=== PATIENT | male | born 1945 | race Caucasian/White ===

== ENCOUNTER 2021-10-04 09:39 | Outpatient (RCR) | payer MEDICARE, SELFPAY | END 2021-10-15 11:52 | disposition home or self-care (01) | LOC: HO.WCC 09:39 | PROVIDERS: PCP Internal Medicine; Visit Provider Surgery | DX: S51.812D Laceration without foreign body of left forearm, subsequent encounter (principal); S51.811D Laceration without foreign body of right forearm, subsequent encounter; G62.9 Polyneuropathy, unspecified; W19.XXXD Unspecified fall, subsequent encounter; I48.92 Unspecified atrial flutter; Z79.899 Other long term (current) drug therapy; Z87.891 Personal history of nicotine dependence | CPT/HCPCS: 99213; 99214 ==

== ENCOUNTER 2024-02-26 10:43 | Outpatient (AMB) | payer MEDICARE, SELFPAY ==
--- NOTE | 2024-02-26 10:44 | MHC.OFFVIS ---
Intake Visit Reasons: Leg swelling/ Self referral Intake Note: New patient presents for leg swelling. Patient has bilateral varicose veins. Experiences cramping, swelling. Accompanied by: Other Relationship Allergies meperidine [From Demerol] Allergy (Intermediate, Verified 02/26/24 10:47) Unknown HPI HPI Leg swelling/ Self referral: Details: Pérez is a pleasant 79-year-old male who is presenting today as a self-referral for ongoing bilateral lower extremity swelling and cramping of his lower extremities at night. He has had a history of varicose veins for several years, he states that they have not been bothering him until recently. He is on Lasix (for at least 5y) for peripheral edema prescribed by cardiology/PCP. He does elevate his legs but he has not been tolerable of compression stockings, states they are hard to get on and get off. He is able to walk distances; however, he has had some issues with dehydration in the last couple of weeks and has not been walking as much. He states the varicose veins not been painful; however, he does get cramping at night particularly in his shins, feet, and calves. He quit smoking more than 40 years ago and is a nondiabetic. Review of Systems Const Reports as per HPI and Denies weakness ENT Reports Normal hearing present and Denies dizziness Card Reports as per HPI, Denies chest pain, Denies chest pain at rest, Denies chest pain with activity, Denies dyspnea and Denies dyspnea on exertion Resp Reports as per HPI, Denies cough, Denies dyspnea and Denies dyspnea on exertion GI Reports as per HPI, Denies abdominal pain, Denies nausea and Denies vomiting Musc Denies numbness Skin/Breast Reports as per HPI, Denies erythema and Denies wounds Neuro Reports Normal hearing present, Denies dizziness, Denies numbness, Denies Sensory deficit (Neuro) and Denies weakness Psych Reports no additional complaints Endo Reports no additional complaints Physical Exam Const General: healthy appearing and no acute distress Orientation/consciousness: patient oriented x3 HEENT Head: Yes normal to inspection Ears: hearing grossly normal bilaterally Mouth: Normal oral and palatal mucosa present Resp Effort & Inspection: normal respiratory effort and able to speak in complete sentences Auscultation: clear to auscultation bilaterally Cardio Jugular venous distension: no JVD Rate: regular rate Rhythm: regular rhythm Heart sounds: S1 normal heart sound present and S2 normal heart sound present Bruits: no abdominal aortic bruits, no carotid bruits, no femoral bruits and no renal bruits Peripheral pulses: Peripheral pulses 2+ throughout GI Inspection: Yes normal to inspection Palpation (GI): No Abdominal aortic bruit present Skin Other: Bilateral lower extremities: 1+ pitting edema. Strong, palpable DP/PT pulses. Hyperkeratosis noted throughout. Hyperpigmentation noted. Small wound, scabbing over, noted on the anterior mid-galindo. Several rope-like varicosities noted, left more than right. Not painful. CEAP: C - 4 E - primary A - superficial P - reflux General skin exam: no rashes or lesions noted Wounds: no wounds Hair: normal Neuro General: patient oriented x3 Cranial nerves: Yes Normal hearing present Cognition (Neuro): normal cognition Gait exam (Neuro): Normal gait present Motor exam (neuro): 5/5 motor strength present throughout Sensory Exam: No Sensory deficit (Neuro) Extrem General: Yes normal to inspection, Yes full ROM, Yes capillary refill normal and Yes normal gait Assessment & Plan Assessment & Plan (1) Varicose veins of both lower extremities with inflammation: Code(s): I83.11 - Varicose veins of right lower extremity with inflammation; I83.12 - Varicose veins of left lower extremity with inflammation Category: Medical Plan: Pérez is presenting today as a self-referral for ongoing bilateral lower extremity swelling and cramping. He states he elevates his legs and has tried compression stockings but did not tolerate them well. He does remain active; however, he has been having difficulty due to some dehydration issues. In short, the patient has evidence of venous insufficiency. I have discussed the pathophysiology with the patient. In addition I have provided informational material regarding venous disease to the patient. We have discussed conservative measures including compression, elevation, and exercise. I have also provided a handout regarding appropriate use of compression stockings and where to purchase good compression stockings as well. I have taken the liberty of ordering venous insufficiency testing with the patient. They will follow up with me after testing. The patient had an opportunity to ask questions regarding the treatment plan. All questions were answered. No major barriers to understanding were identified. The patient expressed understanding and agreement with the above treatment plan. The patient is aware they should contact our office by phone for worsening of the current condition or the appearance of new symptoms. Thank you for allowing me to participate in the vascular care of this patient. If you have any questions or concerns regarding the treatment for the above condition please do not hesitate to contact me. The office telephone contact is [phone]. This note is constructed using voice recognition software. While every effort has been made to ensure accuracy, rn clinical coordinator errors may have been included. Thank you for allowing me to participate in the care of your patient. Yours sincerely, ANGELO Cueva Orders: Orders US venous duplex LE BI 1 Week I83.11 - Varicose veins of right lower extremity with inflammation, I83.12 - Varicose veins of left lower extremity with inflammation Coding Level of Care Code New Pt New Pt Level 4 (99565) Patient Type New Diagnoses Varicose veins of both lower extremities with inflammation I83.11; I83.12
== END 2024-02-26 11:11 | disposition home or self-care (01) ==
PROVIDERS: PCP Internal Medicine; Visit Provider Physician Assistant Surgical
DX: I83.11 Varicose veins of right lower extremity with inflammation (principal); I83.12 Varicose veins of left lower extremity with inflammation
CPT/HCPCS: 99204

== ENCOUNTER → 2024-02-26 10:43 | Outpatient (BNVA) | payer MEDICARE, SELFPAY | PROVIDERS: PCP Internal Medicine; Visit Provider Physician Assistant Surgical | DX: I83.11 Varicose veins of right lower extremity with inflammation (principal); I83.12 Varicose veins of left lower extremity with inflammation; R25.2 Cramp and spasm; Z87.891 Personal history of nicotine dependence | CPT/HCPCS: 99202 ==

== ENCOUNTER 2024-03-16 13:08 | Outpatient (REF) | payer MEDICARE, SELFPAY ==
--- NOTE | ~2024-03-16 | US_ITS ---
EXAMINATION: US LOWER EXTREMITY VENOUS (REFLUX EXAM), BILATERAL CLINICAL INDICATION: Chronic venous insufficiency with lower extremity varicose veins and inflammation COMPARISON: None. TECHNIQUE: Color flow triplex imaging and compression Doppler was performed to evaluate both the deep and the superficial systems bilaterally. To evaluate the superficial system, the examination was performed in the upright position. Color-flow Doppler ultrasound and compression ultrasound were utilized. In addition, maneuvers were utilized to demonstrate reflux. FINDINGS: 1. DEEP VENOUS ULTRASOUND OF THE RIGHT LOWER EXTREMITY: Common Femoral Vein: Compressible, normal respiratory variation and augmented flow. Femoral Vein: Compressible, normal color flow and augmentation. Popliteal Vein: Compressible, normal augmentation. Deep Reflux: Deep venous reflux in the common femoral vein and superficial femoral vein ranging from 1796 ms to 1836 ms There is no evidence of a Shah's cyst. 2. SUPERFICIAL ULTRASOUND WITH DOPPLER OF RIGHT LOWER EXTREMITY: GREAT SAPHENOUS VEIN: Saphenofemoral Junction: 0.5 cm; Reflux: 2308 ms Proximal Thigh: 0.4 cm; Reflux: 0 ms Mid Thigh: 0.1 cm; Reflux: 0 ms Above Knee: 0.1 cm; Reflux: 0 ms At Knee: 0.2 cm; Reflux: 0 ms Below Knee: 0.2 cm; Reflux: 2600 ms Mid Calf: 0.2 cm; Reflux: 2492 ms Ankle: 0.2 cm; Reflux: 0 ms DUPLICATED MEDIAL GREAT SAPHENOUS VEIN: Diameter: None imaged Reflux: NA DUPLICATED LATERAL GREAT SAPHENOUS VEIN: Diameter: 0.2 cm Reflux: None SMALL SAPHENOUS VEIN: Saphenopopliteal Junction: 0.2 cm; Reflux: 2388 ms Proximal: Wall adherent calcified thrombus which is partially compressible Mid: 0.3 cm; Reflux: 2372 ms Distal: 0.5 cm; Reflux: 2396 ms VEIN OF GIACOMINI: Size: NA Reflux: NA PERFORATORS: Location: Posterior calf into the small saphenous vein Size: 0.4 cm Reflux: None PERFORATORS: Location: Distal calf into varicosities Size: 0.3 cm Reflux: None VARICOSITIES: Location: Posterior calf off the small saphenous vein Size: 0.4 to 0.5 cm Reflux: 2272 ms to 2288 ms VARICOSITIES: Location: Medial distal calf Size: 0.2 cm Reflux: 688 ms 3. DEEP VENOUS ULTRASOUND OF THE LEFT LOWER EXTREMITY: Common Femoral Vein: Compressible, normal respiratory variation and augmented flow. Wall adherent to chronic calcification synechiae Femoral Vein: Compressible, normal color flow and augmentation. Popliteal Vein: Compressible, normal augmentation. Wall adherent chronic calcification Deep Reflux: Deep venous reflux in the superficial femoral vein and popliteal vein ranging from 1980 ms to 2176 ms There is no evidence of a Shah's cyst. 4. SUPERFICIAL ULTRASOUND WITH DOPPLER OF LEFT LOWER EXTREMITY: GREAT SAPHENOUS VEIN: Saphenofemoral Junction: 0.7 cm; Reflux: 0 ms Proximal Thigh: 0.4 cm; Reflux: 0 ms Mid Thigh: 0.2 cm; Reflux: 0 ms Above Knee: 0.3 cm; Reflux: 0 ms At Knee: 0.2 cm; Reflux: 0 ms Below Knee: 0.2 cm; Reflux: 244 ms Mid Calf: 0.3 cm; Reflux: 0 ms Ankle: 0.2 cm; Reflux: 0 ms DUPLICATED MEDIAL GREAT SAPHENOUS VEIN: Diameter: None imaged Reflux: NA DUPLICATED LATERAL GREAT SAPHENOUS VEIN: Diameter: 0.2 cm Reflux: None SMALL SAPHENOUS VEIN: Saphenopopliteal Junction: 0.2 cm; Reflux: 0 ms Proximal: 0.2 cm; Reflux: 0 ms Distal: 0.2 cm; Reflux: 0 ms VEIN OF GIACOMINI: Size: 0.2 cm Reflux: None PERFORATORS: Location: Distal calf into the small saphenous vein Size: 0.4 cm Reflux: None VARICOSITIES: Location: None significant Size: NA Reflux: NA US/US venous duplex LE BI IMPRESSION: 1. Right: Significant deep venous reflux as described above. Significant superficial venous reflux in the great saphenous vein as described above. Significant reflux in the small saphenous vein with wall adherent calcified thrombus in the proximal small saphenous vein is distended with postthrombotic changes. Multiple varicosities in the calf as described above. 2. Left: Significant deep venous reflux in the superficial femoral vein and popliteal vein. Chronic calcified wall adherent thrombus in the common femoral vein and popliteal vein consistent with chronic postthrombotic changes. No significant superficial venous reflux Electronically signed by: Danny Shell MD 04/08/2024 11:00 AM [facility] Workstation: [id number]
== END 2024-03-16 13:09 | disposition home or self-care (01) ==
LOC: HO.US 13:08
PROVIDERS: PCP Internal Medicine; Visit Provider Physician Assistant Surgical
DX: I83.11 Varicose veins of right lower extremity with inflammation (principal); I83.12 Varicose veins of left lower extremity with inflammation
CPT/HCPCS: 93970

== ENCOUNTER 2024-05-06 14:53 | Outpatient (AMB) | payer MEDICARE, SELFPAY ==
--- NOTE | 2024-05-06 14:58 | A.OFFVIS_ITS ---
Intake Visit Reasons: follow up US 03/16/24 Intake Note: Patient presents for US performed on 03/16/24. Patient has no complaints. 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 He does have significant lower extremity swelling. This was originally picked up by his vice president of software engineering and primary care. He has been on Lasix which did provide some relief. Also of note he is currently undergoing workup for AFib and may soon undergo ablation for this as well. He now presents to us for follow-up with venous insufficiency. Review of Systems Const Reports as per HPI ENT Reports no additional complaints Card Denies chest pain, Denies chest pain at rest and Denies chest pain with activity Resp Denies chest congestion and Denies cough GI Reports no additional complaints Musc Details: pain over varicosities, aching of lower extremities, swelling, cramping, heaviness and tiredness, itching Denies abnormal gait Skin/Breast Reports pruritus and Denies wounds Neuro Reports no additional complaints and Denies abnormal gait Psych Denies no additional complaints Physical Exam Const General: cooperative, healthy appearing and comfortable Orientation/consciousness: oriented to person, oriented to place and oriented to time Neck Carotids: no bruits Chest Chest palpation & inspection: normal inspection of the chest and normal palpation of entire chest wall Resp Effort & Inspection: normal respiratory effort and able to speak in complete sentences Cardio Rate: regular rate Heart sounds: S1 normal heart sound present and S2 normal heart sound present Peripheral pulses: Peripheral pulses 2+ throughout GI Inspection: Yes normal to inspection Skin Other: +2 edema, left greater than right CEAP Classification C4 - skin color changes Ep - Etiology Primary As - superficial veins P - reflux General skin exam: dry skin Neuro General: oriented to person, oriented to place and oriented to time Extrem Right lower extremity: full ROM, normal capillary refill and edema Left lower extremity: full ROM, normal capillary refill and edema Psych Mental Status: mental status grossly normal Results Reviewed Results Reviewed: Brief summary of venous insufficiency testing is as follows: right great saphenous vein: Positive right small saphenous vein: Positive right accessory vein: none present left great saphenous vein: negative left small saphenous vein: negative left accessory vein: none present Please note there is no evidence of any venous aneurysms or significant tortuosity Assessment & Plan Assessment & Plan (1) Varicose veins of both lower extremities with inflammation: Code(s): I83.11 - Varicose veins of right lower extremity with inflammation; I83.12 - Varicose veins of left lower extremity with inflammation Category: Medical Plan: In short patient has bilateral lower extremity swelling. This may be multifactorial in nature as the right leg is more significant for reflux. At the current time would like to hold off on any procedures until his cardiac issues have been resolved. We did discuss routine conservative measures including compression elevation and exercise. The patient will follow up with us in approximately 3 months time to reassess the need for right lower extremity ablation. Thank you for allowing us to assist in his care. If there are any questions or concerns please do not hesitate to contact us Coding Level of Care Code Est Pt Level 4 (50319) Diagnoses Varicose veins of both lower extremities with inflammation I83.11; I83.12
== END 2024-05-07 08:57 | disposition home or self-care (01) ==
PROVIDERS: PCP Internal Medicine; Visit Provider Surgery Vascular Surgery
DX: I83.11 Varicose veins of right lower extremity with inflammation (principal); I83.12 Varicose veins of left lower extremity with inflammation
CPT/HCPCS: 99214

== ENCOUNTER → 2024-05-06 14:53 | Outpatient (BNVA) | payer MEDICARE, SELFPAY | PROVIDERS: PCP Internal Medicine; Visit Provider Surgery Vascular Surgery | DX: I83.11 Varicose veins of right lower extremity with inflammation (principal); I83.12 Varicose veins of left lower extremity with inflammation | CPT/HCPCS: 99212 ==

== ENCOUNTER 2024-08-05 10:46 | Outpatient (AMB) | payer MEDICARE, SELFPAY ==
--- NOTE | 2024-08-05 10:51 | A.OFFVIS_ITS ---
Intake Visit Reasons: 3 month right leg check Intake Note: 3 mo leg check s/p US 03/16/24, when last seen he was about to undergo cardiac ablation which was done by at [facility] in May 2024. Pt states Right leg has no issues, states Left LE swelling. Accompanied by: Self / Same As Patient Allergies meperidine [From Demerol] Allergy (Intermediate, Verified 08/05/24 11:06) Unknown HPI HPI 3 month right leg check: Details: The patient is a 79-year-old male presenting with venous insufficiency for routine 3 month check. He reports leg edema and minor varicosities without significant discomfort. Previously prescribed Lasix provided improvement; however, Torsemide caused lightheadedness and a syncopal episode. He has a past medical history of atrial fibrillation, managed by ablation, and prostate cancer, with a stable PSA level. He currently reports only some mild edema and at the current time appears to be doing relatively well with his lower extremities. No significant complaints at the current time. Now presents for routine follow-up. Of note he has been compliant with compression. Review of Systems Const All systems reviewed & are unremarkable except as noted in HPI and below Reports no additional complaints ENT Reports Normal hearing present Card Denies chest pain, Denies chest pain at rest, Denies chest pain with activity and Denies pedal edema Resp Denies cough GI Denies abdominal pain Musc Denies abnormal gait, Denies muscle cramps and Denies radiating pain into limb Skin/Breast Denies skin ulcer and Denies wounds Neuro Reports Normal hearing present and Denies abnormal gait Psych Reports no additional complaints Physical Exam Const General: cooperative, healthy appearing and comfortable Orientation/consciousness: oriented to person, oriented to place and oriented to time HEENT Head: Yes normal to inspection Neck Neck: Yes normal visual inspection Carotids: no bruits Chest Chest palpation & inspection: normal inspection of the chest Resp Effort & Inspection: normal respiratory effort and able to speak in complete sentences Auscultation: clear to auscultation bilaterally, no crackles, no rales, no r honchi and no wheezes Cardio Rate: regular rate Rhythm: regular rhythm Heart sounds: S1 normal heart sound present and S2 normal heart sound present Bruits: no carotid bruits Peripheral pulses: Peripheral pulses 2+ throughout GI Inspection: Yes normal to inspection Skin Wounds: no wounds Hair: normal Neuro General: oriented to person, oriented to place and oriented to time Cranial nerves: Yes CN's II-XII intact bilaterally and Yes Normal hearing present Cognition (Neuro): normal cognition Motor exam (neuro): 5/5 motor strength present throughout Extrem Other: venous exam: +1 edema General: No clubbing, No cyanosis and Yes edema Psych Appearance: grossly normal Mental Status: mental status grossly normal Speech and movement: Normal speech and movement present Results Reviewed Results Reviewed: results from 03/16/2024 were reviewed. There is positive reflux in the right small saphenous vein. Assessment & Plan Assessment & Plan (1) Varicose veins of both lower extremities with inflammation: Code(s): I83.11 - Varicose veins of right lower extremity with inflammation; I83.12 - Varicose veins of left lower extremity with inflammation Category: Medical Plan: At the current time patient appears to be doing relatively well with his lower extremities. He reports actually the left is more significant than the right. He only has mild venous insufficiency on the right. At the current time would continue with conservative measures including compression elevation and exercise. This was discussed with the patient he will follow up with us on an as-needed basis. Thank you for allowing us to assist in his care Plan Patient was informed and verbally consented to the use of an ambient scribe for clinic note documentation during this visit. Patient Instructions: - Continue leg elevation and regular walking and compression. - Monitor for any changes in symptoms, such as increased swelling or discomfort. - Report any new or worsening symptoms promptly. - No current medication changes are needed. - Maintain regular follow-up with the [employer] for heart issues Coding Level of Care Code Est Pt Level 3 (75465) Diagnoses Varicose veins of both lower extremities with inflammation I83.11; I83.12
--- OUTSIDE RECORDS SUMMARY | 2024-08-05 11:57 | XMS_ITS ---
Author Organization [facility] Address [address] [place] [address] Care Team Providers Care Quality Assistant Name Role Phone Karrie Guevara Primary Care Provider Danna Daley Unavailable [phone] Allergies Allergen (clinical drug ingredient) Drug/Non Drug Allergy documented on EMR Reaction Allergy Type Onset Date Status meperidine Demerol rash Drug Allergy Active REASON FOR VISIT Painful nail(s) aggrevated by shoes causing difficulty standing/walking, Skin problem(s) Medications Medication SIG (Take, Route, Frequency, Duration) Notes Start Date End Date Status Tylenol PRN Unknown Losartan Potassium 50 MG 1 tablet Orally Once a day Not-Taking Naproxen Not-Taking Ciclopirox Olamine 0.77 % 1 application Externally Twice a day for 30 days 12/21/2019 Not-Taking Amiodarone HCl 200 MG 1 tablet Orally On ce a day Not-Taking Lupron Not-Taking Eliquis 2.5 MG as directed Orally Not-Taking Gabapentin 300 MG 1 tablet Orally 3 times daily Not-Taking Omeprazole Not-Takin g Metoprolol Tartrate 25 MG 1 tablet with food Orally Not-Taking Abiraterone Acetate 250 MG 4 tablets Ora lly Once a day Not-Taking predniSONE Not-Takin g Spironolactone Not-T aking Torsemide 20 MG 1 tablet Orally Once a day Not-Taking Ammonium Lactate 12 % 1 application to affected area Externally Twice a day to dry areas of skin on feet for 30 days 07/15/2024 Active Metoprolol Succinate ER 50 MG 1 tablet Orally Once a day Not-Taking Furosemide Active Eliquis 5 MG as directed Orally Active Probiotic Active Multivitamin Active Fish Oil Extra Strength 435 MG 1 capsule Orally Three times a day Active Krill & Fish Oil Blend Active Social History Tobacco Use: Social History Observation Description Date Details (start date - stop date) Never Smoker NA - NA Tobacco use other than smoking: Question Answer Notes Are you an other tobacco user? No Tobacco Control (Standard) Question Answer Notes Tobacco use: Nonsmoker Additional Findings: Tobacco non-user Current no nsmoker AUDIT-C (Standard) Question Answer Notes Did you have a drink containing alcohol in the p ast year? No Points 0 Interpretation Negative Problems No Known Problems Vital Signs Height 8zg48lb in 07/15/2024 Weight 250 lbs 07/15/2024 BMI 34.86 kg/m2 07/15/2024 Blood pressure systolic 128 mm Hg 07/16/19 25 Blood pressure diastolic 79 mm Hg 025 Encounters Encounter Location Date Provider Diagnosis [facility] [address] [address] 07/15/2024 Danna Talavera Tinea unguium B35.1 ; Xerosis of skin L85.3 ; Pain in right toe(s) M79.674 and Pain in left toe(s) M79.675 Assessments Encounter Date Diagnosis (ICD Code) Assessment Notes Treatment Notes Treatment Clinical Notes Section Notes 07/15/2024 Tinea unguium (ICD-10 - B35.1) 07/15/2024 Xerosis of skin (ICD-10 - L85.3) 07/15/2024 Pain in right toe(s) (ICD-10 - M79.674) 07/15/2024 Pain in left toe(s) (ICD-10 - M79.675) Plan Of Treatment Medication Medication Name Sig Start Date Stop Date Notes Ammonium Lactate 12 % 1 application to a ffected area Externally Twice a day to dry areas of skin on feet for 30 days 07/15/2024 Next Appt Details Follow Up: 3 Months, Reason: Provider Name:Danna hernandez, 10/11/2024 01:30:00 PM, [address] [place] [address], [place], [address], Procedure Notes * Category Sub-Category Detail Notes Debride Nail 6-10 Nail debridement Due to the cl inical pathology outlined in the exam findings, performance of this nail treatment is medically necessary as its management by an unskilled/untrained nonprofessional would put this patients foot and overall health at risk. Therefore, debridement to affected nail(s), as described in exam ( TA, T1, T2, T3, T4, T5, T6, T7, T8, T9, ), was performed exclusively by the physician of record to reduce/remove overall nail length, girth, thickness, subungual debris, and necrotic tissue, by manual and/or electrical means through the use of a nail nipper and/or dremel-type watch crystal grinder, to a more viable healthy nail plate or bed tissue 6-10 nails in total. Silver nitrate was used for any petechial bleeding as necessary. Definitive antifungal treatment options, both pharmaceutical and surgical, have been reviewed and discussed with the patient. The patient solely prefers the use of intermittent/as needed professional debridement services for their nail condition and understands the need for additional periodic treatments to maintain effectiveness in symptomatic relief - 07430 Progress Notes * Afshin RIZZODOB:[birth year] (79 yo M)Acc No.[id number]:07/15/2024 Progress Note Patient:?Afshin RIZZO Provider:?Danna Talavera DPM :1945???Age:79 Y???Sex:Male Meng e:07/15/2024 Address:[address] [place] [address], [address], [place] [address] Pcp:Karrie Guevara Subjective: * Chief Complaints: * ???Painful nail(s) aggrevate d by shoes causing difficulty standing/walkingSkin problem(s) * HPI: ???Painful Nails:?Pt States Last PCP Visit:?Date:?06/15/2024 ???Skin problems:?Nature:?dryness , scaling.?Location:?B/L .?Duration:?several days.?Course:?worse.? * ROS:?General/Constitutional:?Nausea?denies.?Vomiting?denies.?Hunger Thirst?denies.?Loss appetite?denies.?Chills?denies.?Fatigue?denies.?Fever?denies.?Night Sweats?denies.?Unexplained weight loss?denies.?Unexplained weight gain?denies.?HEENTM:?Dentures?denies.?Dizziness?denies.?Glasses/contacts?denies.?Retinopathy?de nies.?Blurred/double vision?denies.?TMJ?denies.?Discharge/drainage?denies.?Implants?denies.?Sore throat?denies.?Dental implants?denies.?Hard of hearing ?denies.?Difficulty chewing/swallowing/speaking?denies.?Nose bleeds?denies.?Sore mouth?denies.?Respiratory:?On Oxygen?denies.?Pneumonia/pleurisy?denies.?Bronchitis?denies.?Emphysema?denies.?C oughing?denies.?Cough blood?denies.?Shortness of breath?denies.?Wheezing?denies.?Cardiovascular:?Pacemaker?denies.?MVP?denies.?WPW?denies.?CHF?denies.?Heart attack?denies.?Septal defect?denies.?Rapid beat?denies.?Chest pain ?denies.?Atrial Fib.?admits.?Murmur/Palpitations?denies.?Gastrointestinal:?Hemorrhoids?denies.?Stomach/Abdominal pain?denies.?Dark blood stool?denies.?Irritable bowel ?denies.?Constipation?denies.?Diarrhea?denies.?Hematology:?Swelling?denies.?Clots?denies.?Varicose Veins?denies.?Bruising?denies.?Bleeding problem?denies.?Genitourinary:?Blood urine?denies.?Frequent/Painfu/urination/bladder control?denies.?Kidney stones?denies.?Infection (UTI)?denies.?Nephropathy?denies.?sex trans dis (STD)?denies.?Prostate?denies.?Musculoskeletal:?Hammertoes?denies.?Bunions?denies.?Back Pain?denies.?Muscle Cramps/ Resting?denies.?Muscle cramps / walking?denies.?Generalized aches and pains?denies.?Weakness?denies.?Integ.:?Garcia?denies.?Scars?denies.?Corns/calluses?denies.?Ingrown nails?denies.?Painful nails?denies.?Open Sores?denies.?Rashes?denies.?Neurologic:?Difficulty sleeping?denies.?Brain disorder?denies.?Numbness?denies.?Balance trouble?denies.?Confusion?denies.?Fainting/blackouts?denies.?Tingling?denies.?Tr emors?denies.? * Medical History:? * Surgical History:?cardiac ab lasion 06/29 * Hospitalization/Major Diagno stic Procedure:?[facility] Atrial flutter 01/2020[facility] rupture tendons bacteremia 09/2020 * Family History:?Mother: dece ased, cancer, diagnosed with Diabetic - NIDDM, Family history of arthritis.?Father: , cancer.? * Social History:?Tobacco Use:?Tobacco use other than smoking?Are you an other tobacco user??No ?Tobacco Control (Standard)?Tobacco use:?Nonsmoker ?Additional Findings: Tobacco non-user?Current nonsmoker ???Drugs/Alcohol:?Drugs?Have you used drugs other than those for medical reasons in the past 12 months??No ???Miscellaneous:?Caffeine: yes, frequency:, 1-2 cups per day decaf. ?Children: yes. ?Exercise: yes, gym, fishing. ?Marital status: . 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 ???Drug/Alcohol:?AUDIT-C (Standard)?Did you have a drink containing alcohol in the past year??No ?Points?0 ?Interpretation?Negative * Medications:?TakingKrill & F mckenzie Oil Blend Fish Oil Extra Strength 435 MG Capsule 1 capsule Orally Three times a day Eliquis 5 MG Tablet as directed Orally Multivitamin Probiotic Furosemide Taking Krill & Fish Oil Blend Taking Fish Oil Extra Strength 435 MG Capsule 1 capsule Orally Three times a day Taking Eliquis 5 MG Tablet as directed Orally Taking Multivitamin Taking Probiotic Taking Furosemide Not-Taking/PRNMetoprolol Succinate ER 50 MG Tablet Extended Release 24 Hour 1 tablet Orally Once a day Torsemide 20 MG Tablet 1 tablet Orally Once a day Spironolactone predniSONE Abiraterone Acetate 250 MG Tablet 4 tablets Orally Once a day Lupron Gabapentin 300 MG Capsule 1 tablet Orally 3 times daily Eliquis 2.5 MG Tablet as directed Orally Metoprolol Tartrate 25 MG Tablet 1 tablet with food Orally Omeprazole Naproxen Losartan Potassium 50 MG Tablet 1 tablet Orally Once a day Amiodarone HCl 200 MG Tablet 1 tablet Orally Once a day Ciclopirox Olamine 0.77 % Cream 1 application Externally Twice a day Not-Taking/PRN Metoprolol Succinate ER 50 MG Tablet Extended Release 24 Hour 1 tablet Orally Once a day Not-Taking/PRN Torsemide 20 MG Tablet 1 tablet Orally Once a day Not-Taking/PRN Spironolactone Not- Taking/PRN predniSONE Not-Taking/PRN Abiraterone Acetate 250 MG Tablet 4 tablets Orally Once a day Not-Taking/PRN Lupron Not-Taking/PRN Gabapentin 300 MG Capsule 1 tablet Orally 3 times daily Not-Taking/PRN Eliquis 2.5 MG Tablet as directed Orally Not- Taking/PRN Metoprolol Tartrate 25 MG Tablet 1 tablet with food Orally Not-Taking/PRN Omeprazole Not-Taking/PRN Naproxen Not-Taking/PRN Losartan Potassium 50 MG Tablet 1 tablet Orally Once a day Not-Taking/PRN Amiodarone HCl 200 MG Tablet 1 tablet Orally Once a day Not-Taking/PRN Ciclopirox Olamine 0.77 % Cream 1 application Externally Twice a day UnknownTylenol , Notes to Pharmacist: PRNMedication List reviewed and reconciled with the patientUnknown Tylenol , Notes to Pharmacist: PRNMedication List reviewed and reconciled with the patient * Allergies:?Demerol: kimmy[ Allergies Verified] Objective: * Vitals:?Ht: 1bp64st, Wt: 250 , BMI: 34.86, Shoe size: 11.5EEE, BP: 128/79 mm Hg, Ht-cm: 180.34 cm, Wt-k.4 kg. * Examination: ???Nails: ?NAILS are:?Elongated, overgrown, dystrophic, lytic, greater than 3mm thick, discolored and friable with crumbly malodorous subungual debris, with pain on palpation,, TA, T1, T2, T3, T4, T5, T6, T7, T8, T9.?Vascular: ?DP PULSES (B):?3/4, B/L.?PT PULSES (B):?3/4, B/L.?CAPILLARY FILL TIME:?immediate, all digits, B/L.?TEMPERTURE GRADIENT (C):?normal, warm to cool, proximal to distal, B/L, B/L.?RICARDO'S SIGN:?absent, B/L.?PALPABLE CORDS:?absent, B/L.?General Examination: ?GENERAL APPEARANCE:?Reveals a pleasant, alert, well nourished, well- developed, well hydrated individual, who demonstrates proper attention to hygiene/body habitus, and is in no acute distress, Pt serves as own historian for office visit today.?ORIENTED:?person, place, and time.?Neurological: ?SENSORY:?Neurological exam reveals intact sensorium, pain sensation normal, vibration sensation intact, pinprick sensation is normal in the lower extremities, Pt denies, anesthesia, burning, paresthesia, tingling, B/L.?Dermatologic: ?SKIN FINDINGS:?Skin shows sign(s) of, dryness, scaling, in a stocking fashion, no fissure(s) present, B/L.? Assessment: * Assessment: 1.?Tinea unguium - B35.1???2 .?Xerosis of skin - L85.3 (Primary)???Specify :Acute problem, Uncomplicated (3),Rx Management (4)???3.?Pain in right toe(s) - M79.674???4.?Pain in left toe(s) - M79.675??? Plan: * Treatment: * Procedures:?Debride Nail 6-10:?Nail debridement?Due to the clinical pathology outlined in the exam findings, performance of this nail treatment is medically necessary as its management by an unskilled/untrained nonprofessional would put this patients foot and overall health at risk. Therefore, debridement to affected nail(s), as described in exam ( TA, T1, T2, T3, T4, T5, T6, T7, T8, T9, ), was performed exclusively by the physician of record to reduce/remove overall nail length, girth, thickness, subungual debris, and necrotic tissue, by manual and/or electrical means through the use of a nail nipper and/or dremel-type watch crystal grinder, to a more viable healthy nail plate or bed tissue 6- 10 nails in total. Silver nitrate was used for any petechial bleeding as necessary. Definitive antifungal treatment options, both pharmaceutical and surgical, have been reviewed and discussed with the patient. The patient solely prefers the use of intermittent/as needed professional debridement services for their nail condition and understands the need for additional periodic treatments to maintain effectiveness in symptomatic relief - [id number].? * Procedure Codes:?82434 DEBRI DE NAIL, 6 OR MORE, Modifiers: XS * Preventive Medicine:? ??Counseling:?Discussion:?-13: Office or other outpatient visit for the evaluation and management of an established patient, which required a medically appropriate history and/or examination and LOW level of DECISION MAKING for: 1 STABLE ACUTE UNCOMPLICATED PROBLEM, 2 OR MORE MINOR PROBLEMS, OR 1 STABLE CHRONIC PROBLEM, THAT POSE(S) A LOW RISK FOR MORBIDITY/MORTALITY. The visit on the day of the encounter encompassed interpreting the data and educating the patient as to the nature of their condition, treatment options available according to their individual PMH, meds, allergies, and overall health/living conditions, as well as any potential risks or complications that may occur from a failure to adhere to, and participate in, the recommended course of therapy. The discussion included a complete verbal, and/or written explanation of the examination results, any x-rays taken, the proposed diagnosis, and outline of the treatment plan. A schedule for future care needs was also explained. The patient verbalized an understanding of the instructions at this time and agreed to be an active participant in their treatment. If the patient should think of any questions or concerns after the visit, I have encouraged the patient to call the office.?Xerosis:?The patient was counseled on the diagnosis, potential etiologies, and treatment options for their skin condition. We discussed the risks and benefits of each option from performing no treatment, to utilizing OTC topical skin creams/ointments, to utilizing prescription topical creams/ointments, to utilizing customized compounded topical medications and use of nocturnal occlusion with any/all previously detailed therapies. We discussed the advantages and disadvantages of each possible treatment and importance for adherence to all the recommended therapies for optimum success and avoid potential complications such as open sore/infection/possible hospitalization. We discussed the potential effectiveness of each topical preparation as well as each ones possible side effects and/or patient medication interactions. Patient questions re: use, dosage, successful outcomes, and application consistency were reviewed and the patient verbalized that all answers were clearly understood. , [employer].? * Follow Up:?3 Months * Images: * Sign off status: Completed true * Provider:?Danna Talavera DPM Date:?03/ Generated for Star ruiz/Johana/Oswaldoitting on:?08/05/2024 11:57 AM EDT History and Physical Notes * HPI (History of Present Illness) Category Sub-Category Detail Notes Category Not es Painful Nails Pt States Last PCP Visit: Date:: 06/15/2024 Skin problems Nature: dryness , scaling Location: B/L Duration: several days Course: worse Examination Category Sub-Category Detail Notes Category Not es Neurological SENSORY: Neurological exa m reveals intact sensorium, pain sensation normal, vibration sensation intact, pinprick sensation is normal in the lower extremities, Pt denies, anesthesia, burning, paresthesia, tingling, B/L Dermatologic SKIN FINDINGS: Skin shows sign( s) of, dryness, scaling, in a stocking fashion, no fissure(s) present, B/L General Examination GENERAL APPEARANCE: Reveals a pleasant, alert, well nourished, well-developed, well hydrated individual, who demonstrates proper attention to hygiene/body habitus, and is in no acute distress, Pt serves as own historian for office visit today ORIENTED: person, place, and t rosalind Vascular DP PULSES (B): 3/4, B/L PT PULSES (B): 3/4, B/L CAPILLARY FILL TIME: immediate, all digi ts, B/L TEMPERTURE GRADIENT (C): normal, warm to cool, proximal to distal, B/L, B/L RICARDO'S SIGN: absent, B/L PALPABLE CORDS: absent, B/L Nails NAILS are: Elongated, overg rown, dystrophic, lytic, greater than 3mm thick, discolored and friable with crumbly malodorous subungual debris, with pain on palpation,, TA, T1, T2, T3, T4, T5, T6, T7, T8, T9
--- OUTSIDE RECORDS SUMMARY | 2024-08-05 11:57 | XMS_ITS ---
Author Organization [facility] Address [address] [place] [address] Care Team Providers Care Emergency Department Rn Name Role Phone Karrie Guevara Primary Care Provider Danna Daley Unavailable [phone] Allergies Allergen (clinical drug ingredient) Drug/Non Drug Allergy documented on EMR Reaction Allergy Type Onset Date Status meperidine Demerol rash Drug Allergy Active REASON FOR VISIT Painful nail(s) aggrevated by shoes causing difficulty standing/walking Medications Medication SIG (Take, Route, Frequency, Duration) Notes Start Date End Date Status Ciclopirox Olamine 0.77 % 1 application Externally Twice a day for 30 days 12/21/2019 Not-Taking Amiodarone HCl 200 MG 1 tablet Orally On ce a day Not-Taking Tylenol PRN Unknown Losartan Potassium 50 MG 1 tablet Orally Once a day Not-Taking Naproxen Not-Taking Omeprazole Not-Takin g Metoprolol Tartrate 25 MG 1 tablet with food Orally Not-Taking Lupron Not-Taking Eliquis 2.5 MG as directed Orally Not-Taking Gabapentin 300 MG 1 tablet Orally 3 times daily Not-Taking Abiraterone Acetate 250 MG 4 tablets Ora lly Once a day Not-Taking Probiotic Active Multivitamin Active predniSONE Not-Takin g Furosemide Active Spironolactone Activ e Social History Tobacco Use: Social History Observation Description Date Details (start date - stop date) Former Smoker NA - NA Tobacco Use/Smoking Question Answer Notes Are you a: former smoker When did you stop smoking? 45 years ago Additional Findings: Tobacco Non-User Current no n-smoker Alcohol Screen Question Answer Notes Did you have a drink contain ing alcohol in the past year? Yes How often did you have a dri nk containing alcohol in the past year? Monthly or less (1 point) How many drinks did you have on a typical day when you were drinking in the past year? 1 or 2 drinks (0 point) How often did you have 6 or more drinks on one occasion in the past year? Never (0 point) Points 1 Interpretation Negative Tobacco use other than smoking: Question Answer Notes Are you an other tobacco user? No Problems No Known Problems Vital Signs Height [id number] in 02/04/2024 Weight 252 lbs 02/04/2024 BMI 35.14 kg/m2 02/04/2024 Blood pressure systolic 124 mm Hg 02/04/20 24 Blood pressure diastolic 80 mm Hg 024 Encounters Encounter Location Date Provider Diagnosis [facility] [place] [address] [place] [address] 02/04/2024 Danna Shitaldavid Pain in right toe(s) M79.674 ; Tinea unguium B35.1 and Pain in left toe(s) M79.675 Assessments Encounter Date Diagnosis (ICD Code) Assessment Notes Treatment Notes Treatment Clinical Notes Section Notes 02/04/2024 Pain in right toe(s) (ICD-10 - M79.674) 02/04/2024 Tinea unguium (ICD-10 - B35.1) 02/04/2024 Pain in left toe(s) (ICD-10 - M79.675) Plan Of Treatment Next Appt Details Follow Up: 2 Months, Reason: Provider Name:Danna hernandez, 10/11/2024 01:30:00 PM, [address] [facility], [place], [address], Procedure Notes * Category Sub-Category Detail Notes Debride Nail 6-10 Nail debridement Nail debridem ent performed extensively to reduce/remove overall nail length and girth, subungual debris, and necrotic tissue, by manual and electrical means with use of a nail nipper and/or dremel, to more viable healthy nail plate or bed tissue 6-10. Silver nitrate used for any petechial bleeding as necessary. Patient chooses, no pharmaceutical tx ([id number]) Progress Notes * Afshin RIZZO:[birth year] (79 yo M)Acc No.[id number]:02/04/2024 Progress Note Patient:?Afshin Rizzo Provider:?Danna Talavera DPM :1945???Age:79 Y???Sex:Male Meng e:02/04/2024 Address:[address] [place] [address], [address], [facility] Pcp:Karrie Guevara Subjective: * Chief Complaints: * ???Painful nail(s) aggrevate d by shoes causing difficulty standing/walking * HPI: ???Painful Nails:?Pt States Last PCP Visit:?Date:?11/21/2022 * ROS:?General/Constitutional:?Nausea?denies.?Vomiting?denies.?Hunger Thirst?denies.?Loss appetite?denies.?Chills?denies.?Fatigue?denies.?Fever?denies.?Night Sweats?denies.?Unexplained weight loss?denies.?Unexplained weight gain?denies.?HEENTM:?Dentures?denies.?Dizziness?denies.?Glasses/contacts?denies.?Retinopathy?de nies.?Blurred/double vision?denies.?TMJ?denies.?Discharge/drainage?denies.?Implants?denies.?Sore throat?denies.?Dental implants?denies.?Hard of hearing ?denies.?Difficulty chewing/swallowing/speaking?denies.?Nose bleeds?denies.?Sore mouth?denies.?Respiratory:?On Oxygen?denies.?Pneumonia/pleurisy?denies.?Bronchitis?denies.?Emphysema?denies.?C oughing?denies.?Cough blood?denies.?Shortness of breath?denies.?Wheezing?denies.?Cardiovascular:?Pacemaker?denies.?MVP?denies.?WPW?denies.?CHF?denies.?Heart attack?denies.?Septal defect?denies.?Rapid beat?denies.?Chest pain ?denies.?Atrial Fib.?denies.?Murmur/Palpitations?denies.?Gastrointestinal:?Hemorrhoids?denies.?Stomach/Abdominal pain?denies.?Dark blood stool?denies.?Irritable bowel ?denies.?Constipation?denies.?Diarrhea?denies.?Hematology:?Swelling?denies.?Clots?denies.?Varicose Veins?denies.?Bruising?denies.?Bleeding problem?denies.?Genitourinary:?Blood urine?denies.?Frequent/Painfu/urination/bladder control?denies.?Kidney stones?denies.?Infection (UTI)?denies.?Nephropathy?denies.?sex trans dis (STD)?denies.?Prostate?denies.?Musculoskeletal:?Hammertoes?denies.?Bunions?denies.?Back Pain?denies.?Muscle Cramps/ Resting?denies.?Muscle cramps / walking?denies.?Generalized aches and pains?denies.?Weakness?denies.?Integ.:?Garcia?denies.?Scars?denies.?Corns/calluses?denies.?Ingrown nails?denies.?Painful nails?denies.?Open Sores?denies.?Rashes?denies.?Neurologic:?Difficulty sleeping?denies.?Brain disorder?denies.?Numbness?denies.?Balance trouble?denies.?Confusion?denies.?Fainting/blackouts?denies.?Tingling?admits.?Tr emors?denies.? * Medical History:? * Surgical History:?Denies Pas t Surgical History * Hospitalization/Major Diagno stic Procedure:?[facility] Atrial flutter [facility] tendons [facility] bacteremia 09/2020 * Family History:?Mother: dece ased, cancer, diagnosed with Family history of arthritis, Diabetic - NIDDM.?Father: , cancer.? * Social History:?Tobacco Use:?Tobacco Use/Smoking?Are you a:?former smoker ?When did you stop smoking??45 years ago ?Additional Findings: Tobacco Non-User?Current non-smoker ?Tobacco use other than smoking?Are you an other tobacco user??No ???Drugs/Alcohol:?Drugs?Have you used drugs other than those for medical reasons in the past 12 months??No ?Alcohol Screen?Did you have a drink containing alcohol in the past year??Yes ?How often did you have a drink containing alcohol in the past year??Monthly or less (1 point) ?How many drinks did you have on a typical day when you were drinking in the past year??1 or 2 drinks (0 point) ?How often did you have 6 or more drinks on one occasion in the past year??Never (0 point) ?Points?1 ?Interpretation?Negative ???Miscellaneous:?Caffeine: yes, frequency:, 1-2 cups per day. ?Children: yes. ?Exercise: yes, gym, fishing. ?Marital status: . 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 * Medications:?TakingSpironola ctone Multivitamin Probiotic Furosemide Taking Spironolactone Taking Multivitamin Taking Probiotic Taking Furosemide Not-Taking/PRNpredniSONE Abiraterone Acetate 250 MG Tablet 4 tablets Orally Once a dayLupron Gabapentin 300 MG Capsule 1 tablet Orally 3 times dailyEliquis 2.5 MG Tablet as directed Orally Metoprolol Tartrate 25 MG Tablet 1 tablet with food Orally Omeprazole Naproxen Losartan Potassium 50 MG Tablet 1 tablet Orally Once a dayAmiodarone HCl 200 MG Tablet 1 tablet Orally Once a dayCiclopirox Olamine 0.77 % Cream 1 application Externally Twice a dayNot-Taking/PRN predniSONE Not- Taking/PRN Abiraterone Acetate 250 MG Tablet 4 tablets Orally Once a dayNot-Taking/PRN Lupron Not-Taking/PRN Gabapentin 300 MG Capsule 1 tablet Orally 3 times dailyNot- Taking/PRN Eliquis 2.5 MG Tablet as directed Orally Not-Taking/PRN Metoprolol Tartrate 25 MG Tablet 1 tablet with food Orally Not-Taking/PRN Omeprazole Not-Taking/PRN Naproxen Not-Taking/PRN Losartan Potassium 50 MG Tablet 1 tablet Orally Once a dayNot-Taking/PRN Amiodarone HCl 200 MG Tablet 1 tablet Orally Once a dayNot-Taking/PRN Ciclopirox Olamine 0.77 % Cream 1 application Externally Twice a dayUnknownTylenol , Notes: PRNMedication List reviewed and reconciled with the patientUnknown Tylenol , Notes: PRNMedication List reviewed and reconciled with the patient * Allergies:?Demerol: kimmy[ Allergies Verified] Objective: * Vitals:?Ht: 6sc52xt, Wt:252, BMI: 35.14, Shoe size:11.5EEE, BP: 124/80 mm Hg, Ht-cm: 180.34 cm, Wt-k.31 kg. * Examination: ???Nails: ?NAILS are:?Elongated, overgrown, dystrophic, lytic, greater than 3mm thick, discolored and friable with crumbly malodorous subungual debris, with pain on palpation, 1-5 B/L.?Vascular: ?DP PULSES(B):?3/4, B/L.?PT PULSES(B):?3/4, B/L.?CAPILLARY FILL TIME:?immediate, all digits, B/L.?TEMPERTURE GRADIENT(C):?normal, warm to cool, proximal to distal, B/L, [...] extremities, Pt denies, anesthesia, burning, paresthesia, tingling, B/L.? Assessment: * Assessment: 1.?Pain in right toe(s) - M7 9.674?2.?Pain in left toe(s) - M79.675?3.?Tinea unguium - B35.1 (Primary)? Plan: * Treatment: * Procedures:?Debride Nail 6-10:?Nail debridement?Nail debridement performed extensively to reduce/remove overall nail length and girth, subungual debris, and necrotic tissue, by manual and electrical means with use of a nail nipper and/or dremel, to more viable healthy nail plate or bed tissue 6-10. Silver nitrate used for any petechial bleeding as necessary. Patient chooses, no pharmaceutical tx (35657).? * Procedure Codes:?27075 DEBRI DE NAIL, 6 OR MORE, Modifiers: XS * Follow Up:?2 Months * Images: * Sign off status: Completed true * Provider:?Danna Talavera, FRANC Date:?06/2023 Generated for Star ruiz/Johana/Caroline on:?08/05/2024 11:57 AM EDT History and Physical Notes * HPI (History of Present Illness) Category Sub-Category Detail Notes Category Not es Painful Nails Pt States Last PCP Visit: Date:: 11/21/2022 Examination Category Sub-Category Detail Notes Category Not es Neurological SENSORY: Neurological exa m reveals intact sensorium, pain sensation normal, vibration sensation intact, pinprick sensation is normal in the lower extremities, Pt denies, anesthesia, burning, paresthesia, tingling, B/L General Examination GENERAL APPEARANCE: Reveals a [...] crumbly malodorous subungual debris, with pain on palpation, 1-5 B/L
--- OUTSIDE RECORDS SUMMARY | 2024-08-05 11:57 | XMS_ITS | Patient Health Record ---
Author Organization [facility] Address [address] [place] [address] Care Team Providers Care Nanotechnologist Name Role Phone Karrie Guevara Primary Care Provider Danna Daley Unavailable [phone] Allergies Allergen (clinical drug ingredient) Drug/Non Drug Allergy documented on EMR Reaction Allergy Type Onset Date Status meperidine Demerol rash Drug Allergy Active Reason For Referral No Information Medications Medication SIG (Take, Route, Frequency, Duration) Notes Start Date End Date Status Abiraterone Acetate 250 MG 4 tablets Ora lly Once a day Not-Taking predniSONE Not-Takin g Tylenol PRN Unknown Fish Oil Extra Strength 435 MG 1 capsule Orally Three times a day Active Krill & Fish Oil Blend Active Lupron Not-Taking Metoprolol Succinate ER 50 MG 1 tablet Orally Once a day Not-Taking Losartan Potassium 50 MG 1 tablet Orally Once a day Not-Taking Furosemide Active Naproxen Not-Taking Spironolactone Not-T aking Ciclopirox Olamine 0.77 % 1 application Externally Twice a day for 30 days 12/21/2019 Not-Taking Torsemide 20 MG 1 tablet Orally Once a day Not-Taking Amiodarone HCl 200 MG 1 tablet Orally On ce a day Not-Taking Ammonium Lactate 12 % 1 application to affected area Externally Twice a day to dry areas of skin on feet for 30 days 07/15/2024 Active Eliquis 5 MG as directed Orally Active Eliquis 2.5 MG as directed Orally Not-Taking Gabapentin 300 MG 1 tablet Orally 3 times daily Not-Taking Probiotic Active Omeprazole Not-Takin g Multivitamin Active Metoprolol Tartrate 25 MG 1 tablet with food Orally Not-Taking Immunizations Vaccine Route Administration Date Status Comme nts COVID-19 Pfizer BioNTech Vaccine Unknown 04/02/2021 Administered 1st vaccine 07/24/20 2nd dose 08/14/20 Social History Tobacco Use: Social History Observation [...] Negative Problems No Known Problems Vital Signs Blood pressure diastolic 79 mm Hg 07/15/2024 Height 2ic98vc in 07/15/2024 Blood pressure systolic 128 mm Hg 07/15/2024 Weight 250 lbs 07/15/2024 BMI 34.86 kg/m2 07/15/2024 Encounters Encounter Location Date Provider Diagnosis [address] [address] 10/08/2023 Danna Perica Pain in right toe(s) M79.674 ; Tinea unguium B35.1 and Pain in left toe(s) M79.[address] [address] 02/04/2024 Danna Perica Pain in right toe(s) M79.674 ; Tinea unguium B35.1 and Pain in left toe(s) M79.[address] [address] 04/15/2024 Danna Perica Tinea unguium B35.1 ; Xerosis of skin L85.3 ; Pain in right toe(s) M79.674 and Pain in left toe(s) M79.[address] [address] 07/15/2024 Danna Perica Tinea unguium B35.1 ; Xerosis of skin L85.3 ; Pain in right toe(s) M79.674 and Pain in left toe(s) M79.675 Assessments Encounter Date Diagnosis (ICD Code) Assessment Notes Treatment Notes Treatment Clinical Notes Section Notes 10/08/2023 Pain in right toe(s) (ICD-10 - M79.674) 02/04/2024 Pain in right toe(s) (ICD-10 - M79.674) 04/15/2024 Xerosis of skin (ICD-10 - L85.3) 07/15/2024 Tinea unguium (ICD-10 - B35.1) 04/15/2024 Tinea unguium (ICD-10 - B35.1) 04/15/2024 Pain in right toe(s) (ICD-10 - M79.674) 02/04/2024 Tinea unguium (ICD-10 - B35.1) 07/15/2024 Xerosis of skin (ICD-10 - L85.3) 02/04/2024 Pain in left toe(s) (ICD-10 - M79.675) 10/08/2023 Tinea unguium (ICD-10 - B35.1) 10/08/2023 Pain in left toe(s) (ICD-10 - M79.675) 04/15/2024 Pain in left toe(s) (ICD-10 - M79.675) 07/15/2024 Pain in right toe(s) (ICD-10 - M79.674) 07/15/2024 Pain in left toe(s) (ICD-10 - M79.675) Plan Of Treatment Pending Test Test Name Order Date [id number] NAIL, 6 OR MORE 08/22/2020 [id number] NAIL, 1-5 12/21/2019 [id number] NAIL, 1-5 04/21/2020 57940- Debride <25 sq cm 12/21/2019 Next Appt Details Provider Name:Danna hernandez, 10/11/2024 01:30:00 PM, [address] [facility], [place], [address], Insurance Providers Payer Name Payer Address Payer Phone Subscriber Number Group Number Insured Name Patient Relationship to Insured Coverage Start Date Coverage End Date Blue[employer] 65 Medicare Preferred [address] [place] [address] [id number] Afshin Rizzo Self - patient is the insured Medical (General) History Medical History History ICD Code Back,Hip,and Knee pain Measles Chicken pox prostate cancer Surgical History Surgery Date(Month/Year) cardiac ablasion 06/29 Hospitalization History Reason Date(Month/[facility]) [facility]2020 [facility] Atrial flutter 01/2020
--- OUTSIDE RECORDS SUMMARY | 2024-08-05 11:57 | XMS_ITS ---
Author Organization [facility] Address [address] [place] [address] Care Team Providers Care Tool Repair Technician Name Role Phone Karrie Guevara Primary Care Provider Danna Daley Unavailable [phone] Allergies Allergen (clinical drug ingredient) Drug/Non Drug Allergy documented on EMR Reaction Allergy Type Onset Date Status meperidine Demerol rash Drug Allergy Active REASON FOR VISIT Painful nail(s) aggrevated by shoes causing difficulty standing/walking, Skin problem(s) Medications Medication SIG (Take, Route, Frequency, Duration) Notes Start Date End Date Status Metoprolol Tartrate 25 MG 1 tablet with food Orally Not-Taking Abiraterone Acetate 250 MG 4 tablets Ora lly Once a day Not-Taking Lupron Not-Taking Gabapentin 300 MG 1 tablet Orally 3 times daily Not-Taking Eliquis 2.5 MG as directed Orally Not-Taking Spironolactone Not-T aking Multivitamin Active Probiotic Active Furosemide Not-Takin g predniSONE Not-Takin g Torsemide 20 MG 1 tablet Orally Once a day Active Krill & Fish Oil Blend Active Fish Oil Extra Strength 435 MG 1 capsule Orally Three times a day Active Metoprolol Succinate ER 50 MG 1 tablet Orally Once a day Active Eliquis 5 MG as directed Orally Active Naproxen Not-Taking Losartan Potassium 50 MG 1 tablet Orally Once a day Not-Taking Amiodarone HCl 200 MG 1 tablet Orally On ce a day Not-Taking Ciclopirox Olamine 0.77 % 1 application Externally Twice a day for 30 days 12/21/2019 Not-Taking Tylenol PRN Unknown Omeprazole Not-Takin g Social History Tobacco Use: Social History Observation Description Date Details (start date - stop date) Former Smoker NA - NA Tobacco use other than smoking: Question Answer Notes Are you an other tobacco user? No Tobacco Control (Standard) Question Answer Notes Tobacco use: Former smoker Additional Findings: Tobacco non-user Ex-cigaret te smoker AUDIT-C (Standard) Question Answer Notes Did you have a drink containing alcohol in the p ast year? No Points 0 Interpretation Negative Problems No Known Problems Vital Signs Height [id number] in 04/15/2024 Weight 250 lbs 04/15/2024 BMI 34.86 kg/m2 04/15/2024 Blood pressure systolic 136 mm Hg 04/15/20 24 Blood pressure diastolic 82 mm Hg 024 Encounters Encounter Location Date Provider Diagnosis [facility] [address] [address] 04/15/2024 Danna Talavera Tinea unguium B35.1 ; Xerosis of skin L85.3 ; Pain in right toe(s) M79.674 and Pain in left toe(s) M79.675 Assessments Encounter Date Diagnosis (ICD Code) Assessment Notes Treatment Notes Treatment Clinical Notes Section Notes 04/15/2024 Tinea unguium (ICD-10 - B35.1) 04/15/2024 Xerosis of skin (ICD-10 - L85.3) 04/15/2024 Pain in right toe(s) (ICD-10 - M79.674) 04/15/2024 Pain in left toe(s) (ICD-10 - M79.675) Plan Of Treatment Next Appt Details Follow Up: 2 Months, Reason: Provider Name:Danna hernandez, 10/11/2024 01:30:00 PM, [address] [facility], [place], [address], Procedure Notes * Category Sub-Category Detail Notes Debride Nail 6-10 Nail debridement Due to the cl inical pathology outlined in the exam findings, performance of this nail treatment is medically necessary as its management by an unskilled/untrained nonprofessional would put this patients foot and overall health at risk. Therefore, debridement to affected nail(s), as described in exam , was performed exclusively by the physician of record to reduce/remove overall nail length, girth, thickness, subungual debris, and necrotic tissue, by manual and/or electrical means through the use of a nail nipper and/or dremel-type level vial inside grinder, to a more viable healthy nail [...] to maintain effectiveness in symptomatic relief - 21901 Progress Notes * ILIR Afshin YocastaDOB:[birth year] (79 yo M)Acc No.[id number]:04/15/2024 Progress Note Patient:?ILIR Afshin Rust Provider:?Danna Talavera DPM :1945???Age:79 Y???Sex:Male Meng e:04/15/2024 Address:[address] [place] [address], [address] [place] [id number] Pcp:Karrie Guevara Subjective: * Chief Complaints: * ???Painful nail(s) aggrevate d by shoes causing difficulty standing/walkingSkin problem(s) * HPI: ???Painful Nails:?Pt States Last PCP Visit:?Date:?11/19/2023 ???Skin problems:?Nature:?dryness , scaling.?Location:?B/L .?Duration:?several days.?Course:?worse.? * ROS:?General/Constitutional:?Nausea?denies.?Vomiting?denies.?Hunger Thirst?denies.?Loss appetite?denies.?Chills?denies.?Fatigue?denies.?Fever?denies.?Night Sweats?denies.?Unexplained weight loss?denies.?Unexplained weight gain?denies.?HEENTM:?Dentures?denies.?Dizziness?denies.?Glasses/contacts?denies.?Retinopathy?de nies.?Blurred/double vision?denies.?TMJ?denies.?Discharge/drainage?denies.?Implants?denies.?Sore throat?denies.?Dental implants?denies.?Hard of hearing ?denies.?Difficulty chewing/swallowing/speaking?denies.?Nose bleeds?denies.?Sore mouth?denies.?Respiratory:?On Oxygen?denies.?Pneumonia/pleurisy?denies.?Bronchitis?denies.?Emphysema?denies.?C oughing?denies.?Cough blood?denies.?Shortness of breath?denies.?Wheezing?denies.?Cardiovascular:?Pacemaker?denies.?MVP?denies.?WPW?denies.?CHF?denies.?Heart attack?denies.?Septal defect?denies.?Rapid beat?denies.?Chest pain ?denies.?Atrial Fib.?admits.?Murmur/Palpitations?denies.?Gastrointestinal:?Hemorrhoids?denies.?Stomach/Abdominal pain?denies.?Dark blood stool?denies.?Irritable bowel ?denies.?Constipation?denies.?Diarrhea?denies.?Hematology:?Swelling?denies.?Clots?denies.?Varicose Veins?denies.?Bruising?denies.?Bleeding problem?denies.?Genitourinary:?Blood urine?denies.?Frequent/Painfu/urination/bladder control?denies.?Kidney stones?denies.?Infection (UTI)?denies.?Nephropathy?denies.?sex trans dis (STD)?denies.?Prostate?denies.?Musculoskeletal:?Hammertoes?denies.?Bunions?denies.?Back Pain?denies.?Muscle Cramps/ Resting?denies.?Muscle cramps / walking?denies.?Generalized aches and pains?denies.?Weakness?denies.?Integ.:?Garcia?denies.?Scars?denies.?Corns/calluses?denies.?Ingrown nails?denies.?Painful nails?admits.?Open Sores?denies.?Rashes?denies.?Neurologic:?Difficulty sleeping?denies.?Brain disorder?denies.?Numbness?denies.?Balance trouble?denies.?Confusion?denies.?Fainting/blackouts?denies.?Tingling?denies.?Tr emors?denies.? * Medical History:? * Surgical History:?Denies Pas t Surgical History * Hospitalization/Major Diagno stic Procedure:?[facility] Atrial flutter 01/2020[facility] rupture tendons [facility] bacteremia 09/2020 * Family History:?Mother: dece ased, cancer, diagnosed with Diabetic - NIDDM, Family history of arthritis.?Father: , cancer.? * Social History:?Tobacco Use:?Tobacco use other than smoking?Are you an other tobacco user??No ?Tobacco Control (Standard)?Tobacco use:?Former smoker ?Additional Findings: Tobacco non-user?Ex-cigarette smoker ???Drugs/Alcohol:?Drugs?Have you used drugs other than those for medical reasons in the past 12 months??No ???Miscellaneous:?Caffeine: yes, frequency:, 1-2 cups per day. ?Children: yes. ?Exercise: yes, gym, fishing. ?Marital status: . 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 ???Drug/Alcohol:?AUDIT-C (Standard)?Did you have a drink containing alcohol in the past year??No ?Points?0 ?Interpretation?Negative * Medications:?TakingKrill & F mckenzie Oil Blend Fish Oil Extra Strength 435 MG Capsule 1 capsule Orally Three times a day Metoprolol Succinate ER 50 MG Tablet Extended Release 24 Hour 1 tablet Orally Once a day Eliquis 5 MG Tablet as directed Orally Torsemide 20 MG Tablet 1 tablet Orally Once a day Multivitamin Probiotic Taking Krill & Fish Oil Blend Taking Fish Oil Extra Strength 435 MG Capsule 1 capsule Orally Three times a day Taking Metoprolol Succinate ER 50 MG Tablet Extended Release 24 Hour 1 tablet Orally Once a day Taking Eliquis 5 MG Tablet as directed Orally Taking Torsemide 20 MG Tablet 1 tablet Orally Once a day Taking Multivitamin Taking Probiotic Not-Taking/PRNSpironolactone Furosemide predniSONE Abiraterone Acetate 250 MG Tablet 4 [...] 1 application Externally Twice a day Not-Taking/PRN Spironolactone Not-Taking/PRN Furosemide Not-Taking/PRN predniSONE Not-Taking/PRN Abiraterone Acetate 250 MG Tablet [...] Allergies:?Demerol: kimmy[ Allergies Verified] Objective: * Vitals:?Ht: [id number], Wt: 250 , BMI: 34.86, Shoe size: 11.5EEE, BP: 136/82 mm Hg, Ht-cm: 180.34 cm, Wt-k.4 kg. [...] to affected nail(s), as described in exam , was performed exclusively by the physician of record to reduce/remove overall nail length, girth, thickness, subungual debris, and necrotic tissue, by manual and/or electrical means through the use of a nail nipper and/or dremel-type level vial inside grinder, to a more viable healthy nail [...] to maintain effectiveness in symptomatic relief - 39394.? * Procedure Codes:?80689 DEBRI DE NAIL, 6 OR MORE, Modifiers: [...] that all answers were clearly understood. , RecomLacie Coulter.? * Follow Up:?2 Months * Images: * Sign off status: Completed true * Provider:?Danna Talavera DPM Date:?04/2024 Generated for Star ruiz/Johana/Caroline on:?08/05/2024 11:56 AM EDT History and Physical Notes * HPI (History of Present Illness) Category Sub-Category Detail Notes Category Not es Painful Nails Pt States Last PCP Visit: Date:: 11/19/2023 Skin problems Nature: dryness , scaling Location: [...]
== END 2024-08-05 11:33 | disposition home or self-care (01) ==
LOC: HO.HVS 10:46
PROVIDERS: PCP Internal Medicine; Visit Provider Surgery Vascular Surgery
DX: I83.11 Varicose veins of right lower extremity with inflammation (principal); I83.12 Varicose veins of left lower extremity with inflammation
CPT/HCPCS: 99213

== ENCOUNTER → 2024-08-05 10:46 | Outpatient (BNVA) | payer MEDICARE, SELFPAY | PROVIDERS: PCP Internal Medicine; Visit Provider Surgery Vascular Surgery | DX: I48.91 Unspecified atrial fibrillation (principal); I83.11 Varicose veins of right lower extremity with inflammation; I83.12 Varicose veins of left lower extremity with inflammation | CPT/HCPCS: 99212 ==